=== PATIENT | male | born 1960 | race Caucasian/White ===

== ENCOUNTER 2024-11-09 10:43 | Observation (INO) ==
[2024-11-09 11:25] LABS: ABS Lymphocytes 1.2 10^3/uL (1.0-4.8); ABS Monocytes 0.5 10^3/uL (0.0-1.1); ABS Nucleated RBC 0.01 10^3/ul; Eosinophil % 0.7 %; Hematocrit 45.7 % (38-53); Hemoglobin 15.6 g/dL (13.2-16.3); Mean Corpuscular Hgb Conc 34.1 g/dL (31-36); Mean Corpuscular Volume 90.9 fL (80-97); Mean Platelet Volume 9.4 fL (7.5-11.2); Nucleated Red Blood Cells % 0.2 %/100WBC (0.0-0.8); Platelet Count 209 10^3/uL (150-450); Red Blood Count 5.03 10^6/uL (4.06-5.63); Red Cell Distribution Width 12.6 % (12-17); White Blood Count 4.7 10^3/uL (3.6-10.2)
[2024-11-09 11:45] LABS: Activated Partial Thrombo Time 29.8 seconds (26.0-38.0); INR 0.99 (0.85-1.14)
[2024-11-09 11:48] LABS: Albumin 4.8 g/dL (3.2-5.2); Albumin/Globulin Ratio 1.8 (1-3); Calcium 9.8 mg/dL (8.6-10.3); Creatinine, Serum 0.86 mg/dL (0.67-1.17); Direct Bilirubin 0.1 mg/dL (0.03-0.18); Globulin 2.6 g/dL (2-4); HDL Cholesterol 70.5 mg/dL; Indirect Bilirubin 0.3 mg/dL (0.3-1.0); Potassium 4.3 mmol/L (3.5-5.0); Total Bilirubin 0.4 mg/dL (0.2-1.0); Total Protein 7.4 g/dL (6.4-8.9); eGFR CKD-EPI 97.3 (>60)
[2024-11-09] MEDS: Gadoteridol (CONTRAST) 279.3 MG/ML 10 ML IV ONE (22:13)
[2024-11-10 10:30] VITALS: BP 130/85
== END 2024-11-10 14:10 | disposition home or self-care (01) ==
LOC: ED 10:43 → EDHOLD 10:43 → SUATTDRO 13:11 → MEDTELE 11-10 02:03
PROVIDERS: ADMIT Hospitalist; ATTEND Student in an Organized Health Care Education/Training Program